=== PATIENT | female | born 1935 | race Caucasian/White ===

== ENCOUNTER 2016-12-02 16:40 | Emergency (ER) | payer MEDICARE, BC ==
[2016-12-02 16:58] VITALS: TEMP 97.8; BMI 22.4
[2016-12-02 17:22] LABS: LEUKOCYTES/URINE NEG (NEGATIVE); NITRITE/URINE NEG (NEGATIVE); RBC/URINE 0-2 (0-5); URINE OCCULT BLOOD NEG (NEG/TRACE); WBC/URINE 0-2 (0-5)
[2016-12-02] MEDS ORDERED: NS 1,000 ML IV ONE (17:35)
--- NOTE | 2016-12-02 17:37 | DIRPT ---
CLINICAL DATA: 81-year-old female with mental status changes. Atrial fibrillation. Hypertension. Diabetes. Initial encounter. EXAM: PORTABLE CHEST 1 VIEW COMPARISON: 01/30/2016. FINDINGS: Sequential pacemaker enters from the left with leads unchanged in position. Post valve replacement. Cardiomegaly. Pulmonary vascular prominence most notable centrally similar to prior exam without wan pulmonary edema. No segmental infiltrate or pneumothorax. Calcified mildly tortuous aorta. IMPRESSION: Cardiomegaly and central pulmonary vascular prominence similar to the prior exam. Electronically Signed By: Monico Santiago M.D. On: 12/02/2016 17:34
--- NOTE | 2016-12-02 17:46 | DIRPT ---
CLINICAL DATA: Altered mental status, weakness tired confusion today history of TIA EXAM: CT HEAD WITHOUT CONTRAST TECHNIQUE: Contiguous axial images were obtained from the base of the skull through the vertex without intravenous contrast. COMPARISON: 11/05/2015 FINDINGS: Moderate diffuse cortical atrophy. Mild low attenuation in the deep white matter. Age-related basal ganglia calcification. Intracranial atherosclerotic vascular calcification noted. No evidence of vascular territory infarct or mass. No hemorrhage or extra-axial fluid. Calvarium intact. IMPRESSION: Age-related involutional change with no acute findings Electronically Signed By: Shane Tejada M.D. On: 12/02/2016 17:44
--- NOTE | 2016-12-02 17:51 | EDPRACDOC ---
- General Information Chief Complaint: Generalized Weakness Stated Complaint: WEAKNESS Time Seen by Provider: 12/02/16 17:16 Information Source: Patient Mode Of Arrival: Ambulance Home Medications: Home Medications Furosemide [Lasix] 40 mg PO DAILY 05/03/13 Gabapentin [Neurontin] 300 mg PO HS 05/03/13 Ropinirole HCl [Requip] 3 mg PO QID 05/03/13 Ubidecarenone [Co Q-10] 100 mg PO HS 05/03/13 Biotin 1,000 mcg PO HS 07/22/13 Simvastatin [Zocor] 40 mg PO HS 07/22/13 Vitamins, Multiple [Unicap] 1 cap PO DAILY 07/22/13 Carvedilol [Coreg] 12.5 mg PO BID #60 tablet 11/06/15 Citalopram (anti-depressant) [Celexa] 20 mg PO DAILY #60 11/06/15 Tapentadol HCl [Nucynta] 100 mg PO BID #60 tablet 11/06/15 POTASSIUM CHLORIDE Tablet [K-DUR 20 mEq Tablet*] 20 meq PO BIDWM #60 tab.er.prt 11/08/15 Calcium Carbonate [Calcium] 600 mg PO BID 09/18/16 Cholecalciferol (Vitamin D3) [Vitamin D3] 1,000 unit PO DAILY 09/18/16 Nitrofurantoin Monohyd/M-Cryst [Macrobid 100 mg Capsule] 100 mg PO HS 09/18/16 Aspirin [Ambreen Aspirin] 325 mg PO DAILY 10/18/16 Tramadol HCl [Ultram] 50 mg PO BID PRN #30 tablet 10/18/16 Tapentadol HCl [Nucynta] 100 mg PO BID #3 tablet 12/02/16 Allergies/Adverse Reactions: Allergies Allergy/AdvReac Type Severity Reaction Status Date / Time diphenhydramine HCl Allergy Severe Confusion Verified 12/02/16 16:58 [From Benadryl] omeprazole [From Prilosec] Allergy Intermediate Edema-Oral/ Verified 12/02/16 16 :58 Lip omeprazole magnesium Allergy Intermediate Edema-Oral/ Verified 12/02/16 16:58 [From Prilosec] Lip - History of Present Illness Onset: TODAY Exact Onset of Symptoms: Unknown HPI: PT SAID THAT SHE HAS BEEN CONFUSED TODAY. THE PT SAID THAT SHE THINKS SHE MAY BE DEHYDRATED. Symptoms Started: Reports: Suddenly Symptoms Description: Constant Weakness: Bilateral: Generalized Symptoms: Reports: Weak Associated signs and symptoms:: Reports: None ED Past Medical History - Patient Medical History Neurological History: Denies: Cerebrovascular Accident, Seizures, Migraine, Dementia Cardiac History: Reports: Atrial Fibrillation, Hypertension, Congestive Heart Failure, Hypercholesterolemia, Pacemaker. Denies: Coronary Artery Disease, Heart Attack Respiratory History: Denies: Asthma, COPD, Emphysema GI/ History: Reports: Urinary Tract Infection, Gastroesophageal Reflux Musculoskeletal History: Reports: Arthritis Psychological History: Reports: Anxiety. Denies: Depression, Substance Use Disorder Systemic History: Reports: Anemia. Denies: Cancer, Diabetes Surgical History: Reports: Cholecystectomy, CABG, Hernia Surgery, Tonsillectomy (Valve repair and pacemaker), Tonsillectomy/Adnoidectomy, Other (Colostomy and Reversal, PACEMAKER) - Family Medical History Reports: Hypertension, Diabetes (brother), Cancer (father - brain, throat), Stroke (brother), Cardiac Disorders (Rheumatic fever) - Social Medical History Smoking Status: Never smoker Social History: Denies: Amphetamine Use, Substance Use Disorder ETOH: None Substance Abuse: None Lives In: Home EDM Review of Systems - Review of Systems ROS Negative Except as Marked: Yes All systems reviewed and were negative except as marked Constitutional: Weakness - Physical Exam Constitutional: Alert (Awake), No apparent distress Oriented to: Time, Person, Place Last recorded Vital Signs: Last Vital Signs Temp 97.8 F 12/02/16 16:56 Pulse 75 12/02/16 17:20 Resp 20 12/02/16 17:20 BP 142/76 12/02/16 17:20 Pulse Ox 98 12/02/16 17:20 Oxygen Pulse Oxygen Saturation 98 O2 Device Room Air Oxygen Flow Rate Fraction of Inspired Oxygen ( FIO2) - HEENT Head: Normal ( normocephalic) Eye Exam: Normal (PERRL, EOMI, Sclera white) Oropharynx: Normal (Pharynx:Moist without exudate,Gums-no swelling) ENT EAC: Normal TMJ: Normal Nose: No Symptoms Reported (septum midline) Neck: Normal (FROM, trachea at midline) - Respiratory/Cardiovascular Respiratory: Normal - CTA (BBS clear to auscultation without adventitious sounds ) Cardiovascular: Normal (RRR without murmur, gallop or rub) - GI Auscultation: Normal (NABS) Palpation: Normal (Soft,No rebound or guarding, non distended) Tenderness: Non tender [place]'s Sign: Negative - Musculoskeletal Back: Normal (Non-Tender) Extremities: Normal (Normal tone, Pulses 2+ No cyanosis or edema, FROM) - Integumentary Skin: Normal, Warm, Dry Lymphatics: Normal (no adenopathy) - Neurologic Memory Impaired: Normal Motor Function: Normal (Normal tone, Pulses 2+ No cyanosis or edema, FROM) Cranial Nerve: Normal (CN II-X11 intact sensation, strength 5/5) Cerebellar: Normal Mood Description: Normal Perception: Normal - Results 12/02/16 17:50 12/02/16 17:50 Urine Color Pale yellow 12/02/16 17:09 Urine Clarity Clear 12/02/16 17:09 Urine pH 8.0 (5.0-8.0) 12/02/16 17:09 Ur Specific [place] 1.005 (1.003-1.035) 12/02/16 17:09 Urine Protein Neg (NEG/TRACE) 12/02/16 17:09 Urine Glucose (UA) Neg (NEGATIVE) 12/02/16 17:09 Urine Ketones Neg (NEGATIVE) 12/02/16 17:09 Urine Occult Blood Neg (NEG/TRACE) 12/02/16 17:09 Urine Nitrite Neg (NEGATIVE) 12/02/16 17:09 Urine Bilirubin Neg (NEGATIVE) 12/02/16 17:09 Urine Urobilinogen <2.0 MG/DL (0-1) 12/02/16 17:09 Ur Leukocyte Esterase Neg (NEGATIVE) 12/02/16 17:09 Urine RBC 0-2 (0-5) 12/02/16 17:09 Urine WBC 0-2 (0-5) 12/02/16 17:09 Ur Epithelial Cells Occ 12/02/16 17:09 Urine Bacteria Few (NEG/FEW) 12/02/16 17:09 Lab Results 12/02/16 17:09 Urine Color Pale yellow Urine Clarity Clear Urine pH 8.0 Ur Specific [place] 1.005 Urine Protein Neg Urine Glucose (UA) Neg Urine Ketones Neg Urine Occult Blood Neg Urine Nitrite Neg Urine Bilirubin Neg Urine Urobilinogen <2.0 Ur Leukocyte Esterase Neg Urine RBC 0-2 Urine WBC 0-2 Ur Epithelial Cells Occ Urine Bacteria Few - EKG EKG #1 EKG Time: :41 -: Yes EKG interpreted by me Rate: bpm: 77 [place]: Normal Rhythm: NSR, Paced Hypertrophy: None ST: Normal Comparison: 11/27/15 - Diagnostic Imaging Chest Image interpreted by: Radiologist Cardiomegaly and central pulmonary vascular prominence similar to the prior exam. Head Image interpreted by: Radiologist Age-related involutional change with no acute findings Decision Time to Discharge: 18:54 - Departure Yes I personally saw and evaluated the patient. Disposition: Home Condition: Fair Final Diagnosis: Dehydration Instructions: Dehydration (ED) Education/Counseling Given To: Patient Education/Counseling Given Regarding: Diagnosis, Treatment, Follow Up Referrals: Sophia Kinney MD [Primary Care Provider] - One Week Prescriptions: Tapentadol HCl [Nucynta] 100 mg PO BID #3 tablet
[2016-12-02 18:01] LABS: AUTOMATED BASOPHIL 0.7 % (0-2); AUTOMATED EOSINOPHIL 4.1 % (0-5); AUTOMATED LYMPH 11.9 % (17-44); AUTOMATED MONOCYTE 11.8 % (3-10); AUTOMATED NEUTROPHIL 71.5 % (45-76); MPV 8.9 fL (7.4-10.4)
[2016-12-02 18:13] LABS: PARTIAL THROMB. TIME 26.8 SEC (22-35); PT-INR 1.1
[2016-12-02 18:14] LABS: BLOOD UREA NITROGEN 27 MG/DL (7-17); CALCIUM 10.2 MG/DL (8.4-10.2); CALCULATED OSMOLALITY 265 MOs/Kg (270-290); CHLORIDE 99 mEq/L (98-107); GLUCOSE 98 MG/DL (70-99); SODIUM LEVEL 135 mEq/L (137-146); TOTAL PROTEIN 7.1 G/DL (6.3-8.2)
[2016-12-02] MEDS ORDERED: TAPENTADOL HCL 50 MG TAB PO ONE ×2 (18:53→19:00)
[2016-12-02 19:16] VITALS: BP 145/74; PULSE 77
== END 2016-12-02 19:16 | disposition home or self-care (01) ==
LOC: ED 16:40
DX: E86.0 Dehydration (principal); R41.82 Altered mental status, unspecified
CPT/HCPCS: 36415; 70450; 71010; 80053; 81001; 84484; 85025; 85610; 85730; 93005; 96360; 99283; A9270; J3490